=== PATIENT | male | born 1950 | race African-American/Black ===

== ENCOUNTER 2021-01-18 10:03 | Emergency (ER) | payer MEDICARE, OTHER ==
[~2021-01-18] VITALS: Ht 193 cm; Wt 97.5 kg
[2021-01-18] MEDS ORDERED: DOCU-141 PO (10:11)
[2021-01-18] MEDS ORDERED: ASPI-1420 PO (10:11)
--- NOTE | 2021-01-18 10:17 | NUR ---
[facility] (left lower gum) x 2 weeks, 7/10 pain scale. The patient denies any difficulty in swallowing. In room air and denies SOB. Respiration regular and unlabored. The patient is provided with a warm blanket for comfort. Will continue to monitor.
[2021-01-18] MEDS ORDERED: BISA-79 PO (10:48)
[2021-01-18] MEDS ORDERED: CLIN300C12 PO (10:48)
[2021-01-18] MEDS ORDERED: BISACODYL (5 MG) 5 MG TABLET.DR ONE (10:53)
[2021-01-18] MEDS ORDERED: CLINDAMYCIN HCL 150 MG CAPSULE PO ONE ×2 (10:53→11:00)
--- NOTE | 2021-01-18 10:55 | NUR ---
TRANSPORT CALLED AM [facility] ETA 1132
[2021-01-18] MEDS ORDERED: BISACODYL (5 MG) 5 MG TABLET.DR PO ONE (11:00)
--- NOTE | 2021-01-18 11:37 | NUR ---
Patient discharged to home in stable condition. Written and verbal after care instructions given. Patient verbalizes understanding of instruction. The patient left ER in stable condition.
[2021-01-18 11:38] VITALS: BP 128/72
== END 2021-01-18 11:37 ==
LOC: ER 10:03
DX: K08.89 Other specified disorders of teeth and supporting structures (principal); Z79.899 Other long term (current) drug therapy; Z79.82 Long term (current) use of aspirin

== ENCOUNTER 2023-01-17 14:58 | Emergency (ER) | payer MEDICARE, OTHER ==
[~2023-01-17] VITALS: Ht 193 cm; Wt 97.5 kg
[~2023-01-17 14:58] MED LIST: ASPI-1420 PO; BISA-79 PO; CLIN300C12 PO; DOCU-141 PO
--- NOTE | 2023-01-17 15:00 | NUR ---
bib emt via stretcher cc bld stooll few hrs ptc aox4 not [facility] nursing care started. waiting for emd orders emd made aware
--- NOTE | 2023-01-17 15:45 | NUR ---
plb tech at bedside draw blood
[2023-01-17 16:09] LABS: BASOPHILS # (AUTO) 0.1 K/uL (0.0-0.2); BASOPHILS % (AUTO) 1.1 % (0.0-2.0); EOSINOPHILS % (AUTO) 3.8 % (0.0-6.0); HEMATOCRIT 44 % (39-51); LYMPHOCYTES # (AUTO) 1.8 K/uL (0.8-4.8); LYMPHOCYTES % (AUTO) 28.7 % (20.0-44.0); MEAN CORPUSCULAR HGB CONC 32 g/dl (31.0-36.0); MEAN CORPUSCULAR VOLUME 86 fL (80-96); MONOCYTES # (AUTO) 0.6 K/uL (0.1-1.30); MONOCYTES % (AUTO) 9.9 % (2.0-12.0); NEUTROPHILS # (AUTO) 3.6 K/uL (1.8-8.9); NEUTROPHILS % (AUTO) 56.5 % (43.0-81.0); PLATELET COUNT (AUTO) 327 K/uL (150-450); WHITE BLOOD COUNT (AUTO) 6.4 K/uL (4.3-11.0)
--- NOTE | 2023-01-17 16:13 | NUR ---
pt awake went to the rest room pooed saw the stool brown in color soft formed no bld noticed
[2023-01-17 16:16] LABS: CALCIUM, SERUM 9.4 mg/dL (8.5-10.1); CREATININE 1.1 mg/dL (0.6-1.3); POTASSIUM 4.3 mmol/L (3.5-5.1)
[2023-01-17 16:24] LABS: ALBUMIN 3.4 g/dL (3.4-5.0); BILIRUBIN,DIRECT 0.1 mg/dL (0.0-0.2); BILIRUBIN,TOTAL 0.3 mg/dL (0.2-1.0); TOTAL PROTEIN, SERUM 7.9 g/dL (6.4-8.2)
[2023-01-17] MEDS ORDERED: MAGN296S72 PO (16:31)
[2023-01-17] MEDS ORDERED: POLY17PO4 PO (16:31)
[2023-01-17] MEDS ORDERED: DOCU-141 PO (16:31)
--- NOTE | 2023-01-17 16:41 | NUR ---
PT WENT TO THE BR.SIGNED DISCHRGE PAPER
--- NOTE | 2023-01-17 17:26 | NUR ---
CALLED [facility] FOR TRANSPORT ETA 184
[2023-01-17 19:11] VITALS: BP 149/80
== END 2023-01-17 19:13 ==
LOC: ER 15:00
DX: K60.2 Anal fissure, unspecified (principal); K59.00 Constipation, unspecified; Z79.899 Other long term (current) drug therapy; Z79.82 Long term (current) use of aspirin
CPT/HCPCS: 36415; 80048-TC; 80076-TC; 83690-TC; 85025-TC; 85730-TC

== ENCOUNTER 2025-01-27 08:31 | Emergency (ER) | payer MEDICARE, OTHER ==
[~2025-01-27] VITALS: Ht 180.3 cm; Wt 86.2 kg
[~2025-01-27 08:31] MED LIST changes: +MAGN296S72 PO; +POLY17PO4 PO
[2025-01-27 08:39] VITALS: BP 140/76; TEMP 97.2; O2SAT 98
== END 2025-01-27 08:55 | disposition home or self-care (01) ==
LOC: ER 08:44
DX: R04.0 Epistaxis (principal); Z79.82 Long term (current) use of aspirin; Z79.899 Other long term (current) drug therapy